=== PATIENT | male | born 1970 | race Two or more races ===

== ENCOUNTER 2022-10-17 12:59 | Inpatient (IN) | payer SELFPAY ==
[~2022-10-17] VITALS: Ht 172.7 cm; Wt 71.1 kg
[2022-10-17 15:10] LABS: COVID AG,FIA SOURCE NASOPHARYNGEAL
[2022-10-17 15:29] LABS: BASOPHILS % (AUTO) 0.4 % (0.0-2.0); EOSINOPHILS % (AUTO) 0 % (1.0-6.0); HEMATOCRIT 47.5 % (41-53); HEMOGLOBIN 16.1 g/dL (13.5-17.5); LYMPHOCYTES # (AUTO) 1.2 K/uL (1.0-4.8); LYMPHOCYTES % (AUTO) 11.5 % (22.0-44.0); MEAN CORPUSCULAR HEMOGLOBIN 30.4 pg (26.0-34.0); MEAN CORPUSCULAR HGB CONC 33.8 G/dL (31.0-37.0); MEAN CORPUSCULAR VOLUME 90 fL (80-100); MONOCYTES # (AUTO) 0.8 K/uL (0.1-1.0); MONOCYTES % (AUTO) 7.6 % (2.0-9.0); NEUTROPHILS # (AUTO) 8.2 K/uL (1.8-7.7); NEUTROPHILS % (AUTO) 80.5 % (40.0-70.0); PLATELET COUNT (AUTO) 373 K/uL (150-450); RED BLOOD CELL COUNT(AUTO) 5.29 MIL/uL (4.50-5.90); RED CELL DISTRIBUTION WIDTH 12.4 % (11.5-14.5)
[2022-10-17] MEDS ORDERED: OLANZapine 5 MG RAPDIS TABLET PO PRN (15:30)
[2022-10-17] MEDS ORDERED: ZOLPIDEM TARTRATE 10 MG TABLET PO PRN (15:30)
[2022-10-17] MEDS ORDERED: LIDOCAINE 1% 10 ML VIAL SQ ONE (15:30)
[2022-10-17] MEDS ORDERED: PERTUSS(ACELL),DIPH,TET VAC/PF 0.5 ML SYRINGE IM. ONE (15:30)
[2022-10-17] MEDS ORDERED: BACITRACIN 0.9 GM PACKET OINTMENT TP ONE (15:30)
[2022-10-17 15:38] LABS: ANION GAP 13 mmol/L (8-16); CALCIUM, TOTAL 9.6 mg/dL (8.8-10.5); CARBON DIOXIDE 25 mmol/L (22-29); CHLORIDE 101 mmol/L (98-107); CREATININE 1.05 mg/dL (0.60-1.30); GLOMERULAR FILTR. RATE CALC > 60 mL/min (>60); GLUCOSE,RANDOM 111 mg/dL (70-110); POTASSIUM 3.7 mmol/L (3.5-5.1); SODIUM SERUM 139 mmol/L (136-145)
[2022-10-17 15:43] LABS: ALANINE AMINOTRANSFERASE 25 U/L (12-78); ALKALINE PHOSPHATASE 65 U/L (46-116); ASPARTATE AMINOTRANSFERASE 27 U/L (15-37); BILIRUBIN,TOTAL 0.6 mg/dL (0.1-1.0); TOTAL PROTEIN, SERUM 7.7 g/dL (6.4-8.2)
[2022-10-17] MEDS: LORazepam 2 MG TABLET PO PRN (15:43)
[2022-10-17 16:15] LABS: ACETAMINOPHEN < 2 mcg/mL (10-30)
[2022-10-17 17:33] LABS: APPEARANCE,URINE CLEAR (CLEAR); BILIRUBIN,URINE NEGATIVE (NEGATIVE); GLUCOSE, URINE (UA) NEGATIVE (NEGATIVE); LEUKOCYTE ESTERASE ,URINE NEGATIVE (NEGATIVE); NITRATE,URINE NEGATIVE (NEGATIVE); OCCULT BLOOD,URINE NEGATIVE (NEGATIVE); PH,URINE 5.5 (5.0-8.0); PROTEIN,URINE 30-70 mg/dL (NEGATIVE); SPECIFIC GRAVITIY, URINE 1.025 (1.003-1.030); UROBILINOGEN,URINE <=1.0 mg/dL (<=1.0)
[2022-10-17 17:40] LABS: AMPHET/METH SCREEN,URINE NEGATIVE (NEGATIVE); BARBITURATE SCREEN, URINE NEGATIVE (NEGATIVE); BENZODIAZEPINES SCREEN,URINE NEGATIVE (NEGATIVE); CANNABINOID SCREEN,URINE POSITIVE (NEGATIVE); COCAINE SCREEN,URINE NEGATIVE (NEGATIVE); METHADONE SCREEN, URINE NEGATIVE (NEGATIVE); OPIATE SCREEN,URINE NEGATIVE (NEGATIVE); PHENCYCLIDINE SCREEN,URINE NEGATIVE (NEGATIVE)
[2022-10-18 02:37] VITALS: BP 135/67; PULSE 92; RESP 18; TEMP 97.7; O2SAT 99
[2022-10-18] MEDS ORDERED: OLANZapine 5 MG RAPDIS TABLET PO PRN (08:00)
[2022-10-18] MEDS ORDERED: MAG HYDROX/AL HYDROX/SIMETH ES 30 ML SUSPENSION UDCUP PO PRN (08:00)
[2022-10-18] MEDS ORDERED: GuaiFENesin/D-METHORPHAN [SUGAR-FREE] 200-20MG/10 ML SYRUP UDCUP PO PRN (08:00)
[2022-10-18] MEDS ORDERED: LOPERAMIDE HCL 2 MG CAPSULE PO PRN (08:00)
[2022-10-18] MEDS ORDERED: TUBERCULIN, PURIFIED PROTEIN DERIVATIVE 5 TU/0.1 ML SYRINGE ID ONE (08:00)
[2022-10-18] MEDS ORDERED: MAGNESIUM HYDROXIDE SUSPENSION 30 ML UDCUP PO PRN (08:00)
[2022-10-18] MEDS ORDERED: HydrOXYzine PAMOATE 50 MG CAPSULE PO PRN (08:00)
[2022-10-18] MEDS ORDERED: ACETAMINOPHEN 325 MG TABLET PO PRN (08:00)
[2022-10-18] MEDS ORDERED: PROMETHAZINE HCL 25 MG TABLET PO PRN (08:00)
[2022-10-18 09:00] VITALS: BP 155/89; PULSE 99; RESP 18; TEMP 97.6
[2022-10-18] MEDS ORDERED: OLANZapine 5 MG RAPDIS TABLET PO SCH (09:00)
[2022-10-18] MEDS: OMEGA-3/DHA/EPA/FISH OIL 1,000 MG CAPSULE PO SCH (09:00)
[2022-10-18] MEDS: NALTREXONE HCL 50 MG TABLET PO SCH (09:00)
[2022-10-18] MEDS: MULTIVITAMINS WITH MINERALS, THERAPEUTIC TABLET PO SCH (09:01)
[2022-10-18] MEDS: FOLIC ACID 1 MG TABLET PO SCH (09:01)
[2022-10-18] MEDS: FLUoxetine HCL 20 MG CAPSULE PO SCH (09:01)
[2022-10-18] MEDS: THIAMINE 100 MG TABLET PO SCH ×2 (09:02→16:28)
[2022-10-18] MEDS: OLANZapine 5 MG RAPDIS TABLET PO SCH ×2 (16:28→21:02)
[2022-10-18] MEDS ORDERED: IMIQUIMOD TP SCH (21:00)
[2022-10-18] MEDS: MELATONIN 5 MG TABLET PO SCH (21:02)
[2022-10-18 22:00] VITALS: BP 166/105; PULSE 100; RESP 18; TEMP 97.9; O2SAT 99
[2022-10-19 06:03] LABS: HEMOGLOBIN A1C 5.7 % (3.8-5.6)
[2022-10-19 06:27] LABS: CHOL/HDL RATIO 3.3 (4.2-7.3); FREE T4 (FREE THYROXINE) 1.13 ng/dL (0.76-1.46); THYROID STIMULATING HORMONE 1.56 uIU/mL (0.36-3.74)
[2022-10-19 08:40] VITALS: BP 102/57; PULSE 75; RESP 18; TEMP 97.5
[2022-10-19] MEDS: THIAMINE 100 MG TABLET PO SCH ×2 (08:42→16:13)
[2022-10-19] MEDS: OMEGA-3/DHA/EPA/FISH OIL 1,000 MG CAPSULE PO SCH (08:42)
[2022-10-19] MEDS: NALTREXONE HCL 50 MG TABLET PO SCH (08:42)
[2022-10-19] MEDS: MULTIVITAMINS WITH MINERALS, THERAPEUTIC TABLET PO SCH (08:42)
[2022-10-19] MEDS: OLANZapine 5 MG RAPDIS TABLET PO SCH ×4 (08:42→20:32)
[2022-10-19] MEDS: FOLIC ACID 1 MG TABLET PO SCH (08:42)
[2022-10-19] MEDS: FLUoxetine HCL 20 MG CAPSULE PO SCH (08:58)
[2022-10-19 20:30] VITALS: BP 139/79; PULSE 89; RESP 18; TEMP 97.8
[2022-10-19] MEDS: LORazepam 2 MG TABLET PO PRN (20:32)
[2022-10-19] MEDS: MELATONIN 5 MG TABLET PO SCH (20:32)
[2022-10-19] MEDS ORDERED: MIRTAZAPINE 15 MG TABLET PO SCH (21:00)
[2022-10-19] MEDS ORDERED: OMEG-135 PO (21:39)
[2022-10-19] MEDS ORDERED: MELA5TAB40 PO (21:39)
[2022-10-19] MEDS ORDERED: OLAN5TAB94 PO (21:39)
[2022-10-19] MEDS ORDERED: NALT50TA PO (21:39)
[2022-10-19] MEDS ORDERED: MIRT-89 PO (21:39)
[2022-10-19] MEDS ORDERED: FLUO20CA36 PO (21:39)
[2022-10-20] MEDS: FOLIC ACID 1 MG TABLET PO SCH (08:24)
[2022-10-20] MEDS: FLUoxetine HCL 20 MG CAPSULE PO SCH (08:24)
[2022-10-20] MEDS: OLANZapine 5 MG RAPDIS TABLET PO SCH ×3 (08:24→16:17)
[2022-10-20] MEDS: THIAMINE 100 MG TABLET PO SCH ×2 (08:24→16:17)
[2022-10-20] MEDS: OMEGA-3/DHA/EPA/FISH OIL 1,000 MG CAPSULE PO SCH (08:24)
[2022-10-20] MEDS: MULTIVITAMINS WITH MINERALS, THERAPEUTIC TABLET PO SCH (08:25)
[2022-10-20] MEDS: NALTREXONE HCL 50 MG TABLET PO SCH (08:25)
[2022-10-20 08:30] VITALS: BP 142/87; PULSE 67; RESP 18; TEMP 97.9
== END 2022-10-20 19:35 | disposition home or self-care (01) | DRG 885 ==
LOC: EDBD 12:59 → EDSEX 12:59 → EMS 12:59 → 3EI 22:35
PROVIDERS: ADMIT Psychiatry & Neurology Psychiatry; ATTEND Psychiatry & Neurology Psychiatry
DX: F32.3 Major depressive disorder, single episode, severe with psychotic features (principal); Z20.822 Contact with and (suspected) exposure to COVID-19; Z55.9 Problems related to education and literacy, unspecified; Z59.9 Problem related to housing and economic circumstances, unspecified; Z63.9 Problem related to primary support group, unspecified; Z65.3 Problems related to other legal circumstances
CPT/HCPCS: 80053; 80061; 80307; 81003; 83036; 84439; 84443; 85025; 86592; 90715; 99285; G0480; G0481; J3490; Q9967